=== PATIENT | female | born 1970 | race Caucasian/White ===

== ENCOUNTER → 2018-03-06 12:30 | Outpatient (CLI) | payer OTHER, SELFPAY ==
--- NOTE | 2018-03-06 12:35 | ECHOD_ITS ---
Reason For Study: PHTN Procedure This was a 2D Doppler, Color Flow transthoracic echocardiogram. Exam performed in department. Left Ventricle Normal LV size. Left ventricular systolic function is normal. The estimated ejection fraction is 60 %. Normal diastology for age. No regional wall motion abnormalities noted. Right Ventricle Normal RV size. Normal systolic function. Atria Normal left atrium. Normal right atrium. Mitral Valve Normal mitral valve. Tricuspid Valve Normal tricuspid valve. Mild (1+) tricuspid valve insufficiency. Pulmonary artery systolic pressure is 27 mmHg. Aortic Valve Normal aortic valve. Trisinus/trileaflet aortic valve. Pulmonic Valve Normal pulmonic valve. Great Vessels Normal aortic root. The pulmonary artery is normal size. Inferior vena cava collapse with sniff. Pericardium/Pleural No pericardial effusion. MMode/2D Measurements & Calculations LVIDd: 4.1 cm IVSd: 1.1 cm Ao root diam: 3.2 cm LVIDs: 2.8 cm LVPWd: 0.92 cm RVDd: 3.7 cm FS: 31.9 % LAV(MOD-bp): 43.3 ml LVAd ap4: 33.5 cm2 SV(MOD-sp4): 70.3 ml LAV(MOD-bp) Indexed: 26.0 ml/m2 EDV(MOD-sp4): 104.7 ml LAV(MOD-sp2): 56.1 ml EDV(sp4-el): 108.5 ml LAV(MOD-sp4): 32.1 ml LVAs ap4: 17.2 cm2 ESV(MOD-sp4): 34.4 ml ESV(sp4-el): 34.6 ml EF(MOD-sp4): 67.1 % EF(sp4-el): 68.1 % SV(sp4-el): 73.8 ml LA A4 area: 14.3 cm2 LA dimension(2D): 4.3 cm RA A4 area: 14.0 cm2 Doppler Measurements & Calculations MV E max layo: 113.3 cm/sec Lat Peak E' Layo: 10.5 cm/sec Med Peak E' Layo: 8.6 cm/sec MV A max layo: 105.3 cm/sec E/E' lat: 10.8 E/E' med: 13.1 MV E/A: 1.1 Ao V2 max: 122.8 cm/sec LV V1 max: 101.1 cm/sec PA V2 max: 88.4 cm/sec Ao max P.0 mmHg LV V1 max P.1 mmHg Ao V2 mean: 82.3 cm/sec Ao mean P.0 mmHg Ao V2 VTI: 29.9 cm TR max layo: 234.8 cm/sec TR max P.0 mmHg Interpretation Summary Normal LV size. Left ventricular systolic function is normal. The estimated ejection fraction is 60 %. Mild (1+) tricuspid valve insufficiency. Normal diastology for age. Structurally normal valves. Ordering Physician: Soledad Reis Referring Physician: Stefania Oliveira Performed By: Indiana Hartmann, HANNY, RVT
== END ==
PROVIDERS: Family Provider Family Medicine; PCP Family Medicine; Referring Provider Internal Medicine Rheumatology; Visit Provider Internal Medicine Rheumatology
DX: M34.1 CR(E)ST syndrome (principal); M06.4 Inflammatory polyarthropathy; K22.4 Dyskinesia of esophagus; K21.9 Gastro-esophageal reflux disease without esophagitis; I10 Essential (primary) hypertension; J30.89 Other allergic rhinitis
CPT/HCPCS: 93306

== ENCOUNTER → 2019-03-05 06:54 | Outpatient (CLI) | payer OTHER, SELFPAY ==
--- NOTE | 2019-03-05 07:57 | ECHOD_ITS ---
Reason For Study: PHTN Procedure This was a 2D Doppler, Color Flow transthoracic echocardiogram. Exam performed in department. Left Ventricle Normal LV size. Left ventricular systolic function is normal. The estimated ejection fraction is 65 %. Normal diastology for age. No regional wall motion abnormalities noted. Right Ventricle Normal RV size. Normal systolic function. Atria Normal left atrium. Normal right atrium. Mitral Valve Normal mitral valve. Tricuspid Valve Normal tricuspid valve. Aortic Valve Normal aortic valve. Trisinus/trileaflet aortic valve. Pulmonic Valve Normal pulmonic valve. Great Vessels Normal aortic root. The pulmonary artery is normal size. Normal inferior vena cava. Pericardium/Pleural No pericardial effusion. MMode/2D Measurements & Calculations LVIDd: 4.2 cm IVSd: 1.1 cm Ao root diam: 3.6 cm LVIDs: 2.7 cm LVPWd: 0.87 cm LA dimension: 3.4 cm RVDd: 3.3 cm FS: 35.0 % LAV(MOD-bp): 47.7 ml LA A4 area: 17.1 cm2 RA A4 area: 13.2 cm2 LAV(MOD-bp) Indexed: 27.9 ml/m2 LAV(MOD-sp2): 48.0 ml LAV(MOD-sp4): 40.3 ml Time Measurements MV dec time: 0.22 sec Doppler Measurements & Calculations MV E max layo: 94.9 cm/sec Lat Peak E' Layo: 9.2 cm/sec Med Peak E' Layo: 9.4 cm/sec MV A max layo: 104.1 cm/sec E/E' lat: 10.4 E/E' med: 10.1 MV E/A: 0.91 MV V2 max: 122.3 cm/sec MV P1/2t max layo: 105.9 cm/sec Ao V2 max: 113.6 cm/sec MV max P.0 mmHg MV P1/2t: 97.8 msec Ao max P.2 mmHg MV V2 mean: 72.7 cm/sec MV dec slope: 317.4 cm/sec2 MV mean P.5 mmHg MVA(P1/2t): 2.3 cm2 MV V2 VTI: 35.3 cm LV V1 max: 83.9 cm/sec PA V2 max: 113.6 cm/sec LV V1 max P.8 mmHg Interpretation Summary Normal LV size. Left ventricular systolic function is normal. The estimated ejection fraction is 65 %. Normal diastology for age. Structurally normal valves. Ordering Physician: Soledad Reis Referring Physician: Soledad Reis Performed By: Miki Infante RCS
--- NOTE | 2019-03-05 12:20 | PFTCOMP ---
COMPLETE PULMONARY FUNCTION TEST INTERPRETATION Brief HPI: Patient is a 48 year old female, currently under the care of Dr. Reis, who presents to [facility] for complete pulmonary function tests secondary to diagnosis of dyspnea. Respiratory therapist reports good effort and reproducible results. Interpretation: Forced expiration spirometry shows a mild large airways obstructive ventilatory defect with an FEV1 of 96% predicted. There is a significant bronchodilator response in FEV1 by strict ATS criteria. Spirograms are of good quality and plateau slowly, indicating slowly emptying areas of the lungs. The respiratory flow volume loop shows decreased expiratory flow rates at high lung volumes consistent with small airways obstruction. Lung volumes by body plethysmography show an elevated total lung capacity at 8.6 L, 159% predicted. FRC and RV are elevated out of proportion. Lung volume measurements are consistent with hyperinflation and air-trapping. Diffusion capacity by carbon monoxide is normal at 86% predicted. The airway resistance is slightly elevated. Compared to previous pulmonary function tests from 04/06/2013, significant improvements in FVC and FEV1 by 30% and 32% respectively. Impression: Fully reversible mild large airways obstructive ventilatory defect in a pattern consistent with asthma.
== END ==
PROVIDERS: Family Provider Family Medicine; PCP Family Medicine; Referring Provider Internal Medicine Rheumatology; Visit Provider Internal Medicine Rheumatology
DX: M34.1 CR(E)ST syndrome (principal); M06.4 Inflammatory polyarthropathy; K22.4 Dyskinesia of esophagus; K21.9 Gastro-esophageal reflux disease without esophagitis; I10 Essential (primary) hypertension; J30.89 Other allergic rhinitis
CPT/HCPCS: 93306; 94060; 94726; 94729

== ENCOUNTER → 2019-04-23 17:21 | Outpatient (CLI) | payer OTHER, SELFPAY ==
[2019-04-23 17:24] LABS: Pathologist Comment May follow
[2019-04-23 19:19] LABS: Synovial Fld Mononuclear WBC % 84.9 %; Synovial Fld Polynuclear WBC # 0.164 10^3/uL; Synovial Fld Polynuclear WBC % 15.1 %
[2019-04-23 20:55] LABS: AUTO B FLUID DILUENT BKGD CT WBC <0.1 RBC <0.01 (W<.1,R<.01); Source- Body Fluid SYNOVIAL
[2019-04-23 20:56] LABS: Appearance /Synovial Fluid Cloudy (CLEAR); Color / Synovial Fluid Yellow (Pale Yellow); RBC /Synovial Fluid 44 /mm3 (0)
[2019-04-23 20:57] LABS: Lymph 27 %; Monocyte /Synovial Fluid 3 %; Neutrophil 22 % (0-25); Other Cell /Synovial Fluid 48 %
[2019-04-23 21:05] LABS: Body Fluid QC Type(s) BF1Q,BF2Q
[2019-04-27 09:50] LABS: Pathologist Review Reviewed
== END ==
PROVIDERS: Family Provider Family Medicine; PCP Family Medicine; Referring Provider Internal Medicine Rheumatology; Visit Provider Internal Medicine Rheumatology
DX: M34.1 CR(E)ST syndrome (principal); M06.4 Inflammatory polyarthropathy; K22.4 Dyskinesia of esophagus; K21.9 Gastro-esophageal reflux disease without esophagitis; I10 Essential (primary) hypertension; J30.89 Other allergic rhinitis
CPT/HCPCS: 87070; 87075; 87205; 89050; 89051; 89060

== ENCOUNTER → 2020-09-29 08:33 | Outpatient (CLI) | payer OTHER, SELFPAY ==
[2020-04-27 14:10] VITALS: BMI 22.8
--- NOTE | 2020-09-29 08:36 | ECHOD_ITS ---
Reason For Study: ASSESS PHTN Procedure This was a 2D Doppler, Color Flow transthoracic echocardiogram. The exam was of adequate technical quality. Exam performed in department. Left Ventricle Normal LV size. Left ventricular systolic function is normal. The estimated ejection fraction is 65 %. No evidence for diastolic dysfunction. No regional wall motion abnormalities noted. Right Ventricle Normal RV size. Normal systolic function. Atria Normal left atrium. Normal right atrium. No doppler evidence for ASD. Mitral Valve There is no mitral annular calcification. The mitral valve is structurally normal. No prolapse or stenosis seen. Trivial mitral valve insufficiency. Tricuspid Valve Normal tricuspid valve. Trivial tricuspid valve insufficiency. Right ventricular systolic pressure estimated to be 26 mmHg. Aortic Valve Trisinus/trileaflet aortic valve. Normal aortic valve. Pulmonic Valve The pulmonic valve is not well visualized. Trivial eccentric pulmonic valve insufficiency. Great Vessels Normal sized aortic root. Pericardium/Pleural No pericardial effusion. MMode/2D Measurements & Calculations LVIDd: 4.1 cm IVSd: 0.95 cm Ao root diam: 3.4 cm LVIDs: 3.1 cm LVPWd: 1.1 cm RVDd: 3.8 cm FS: 25.1 % LAV(MOD-bp): 43.4 ml LA A4 area: 13.9 cm2 LA dimension(2D): 3.0 cm LAV(MOD-bp) Indexed: 26.0 ml/m2 LAV(MOD-sp2): 40.6 ml LAV(MOD-sp4): 37.5 ml RA A4 area: 14.4 cm2 Time Measurements MV dec time: 0.20 sec Doppler Measurements & Calculations MV E max layo: 85.5 cm/sec Lat Peak E' Layo: 7.6 cm/sec Med Peak E' Layo: 8.7 cm/sec MV A max layo: 92.8 cm/sec E/E' lat: 11.2 E/E' med: 9.8 MV E/A: 0.92 Ao V2 max: 94.3 cm/sec LV V1 max: 86.7 cm/sec PA V2 max: 87.5 cm/sec Ao max P.6 mmHg LV V1 max P.0 mmHg TR max layo: 239.0 cm/sec TR max P.9 mmHg ECHO/Echo Complete Interpretation Summary Left ventricular systolic function is normal. The estimated ejection fraction is 65 %. Trivial mitral valve insufficiency. Trivial tricuspid valve insufficiency. Trivial eccentric pulmonic valve insufficiency. Right ventricular systolic pressure estimated to be 26 mmHg. No evidence for diastolic dysfunction. Ordering Physician: Soledad Reis Referring Physician: Peyman Goins Performed By: Vanessa Lomax RDCS, RVT
--- NOTE | 2020-09-29 09:30 | RAD_ITS ---
STUDY: X-RAY - THORACIC SPINE REASON FOR EXAM: Female, 50 years old. UPPER R BACK PAIN,CHRONIC,HX BACK SURGERY TECHNIQUE: 5 view(s) of the thoracic spine were obtained. COMPARISON: None. FINDINGS: There is an increase in the normal thoracic kyphosis. There is no substantial scoliosis. There is demineralization of the thoracic spine with endplate spondylosis. There is multilevel disc space narrowing of the thoracic spine. The soft tissue structures are unremarkable. RAD/Thoracic Spine Min 4 Views IMPRESSION: Increased kyphosis. Multilevel spondylosis and disc space narrowing. Electronically Signed: Felipe Haines MD at 12:41 EDT , Service support ,
== END ==
PROVIDERS: PCP Student in an Organized Health Care Education/Training Program; Referring Provider Internal Medicine Rheumatology; Visit Provider Internal Medicine Rheumatology
DX: M34.1 CR(E)ST syndrome (principal); M06.4 Inflammatory polyarthropathy; K22.4 Dyskinesia of esophagus; K21.9 Gastro-esophageal reflux disease without esophagitis; I10 Essential (primary) hypertension; J30.89 Other allergic rhinitis
CPT/HCPCS: 72074; 93306

== ENCOUNTER 2021-07-09 09:36 | Emergency (ER) | payer OTHER, SELFPAY ==
[2021-07-09 09:37] VITALS: BP 144/90; PULSE 89; RESP 14; TEMP 36.7; BMI 21.3
--- NOTE | 2021-07-09 09:47 | ED.VIS.GI ---
HPI HPI - GI History of Present Illness Chief Complaint: Abd Pain Informant: patient Abdominal Pain/Flank Pain Onset: Weeks Context: Gradual Onset Timing: Continuous Quality: Aching Location: LLQ Current Severity: Mild Maximum Severity: Moderate Worsened by: Nothing Relieved by: Nothing Nausea/Vomiting/Emesis GI Symptom: Negative for Nausea and Vomiting Diarrhea/Melena/Hematochezia GI Symptom: Negative for Diarrhea, Melena and Hematochezia Associated Symptoms Associated Symptoms: Positive for Frequency; Negative for Dysuria, Hematuria and Urgency Narrative Narrative: 51-year-old femaleWith chronic kidney disease, crest syndrome and a prior hysterectomy. Stay it since around 8 she has had left lower quadrant abdominal pain. She previously presented to [place] emergency department. At that time she was also having atypical chest discomfort. They worked her up from a cardiac standpoint according to her. She saw her primary care physician who started her on Cipro and Flagyl at that time they chose not to get a CAT scan. States initially she thought she was getting better but the pain has returned and she finished 10 days of Cipro and Flagyl. States she is peeing frequently but denies any dysuria. No melena. No fever. Prior similar symptoms: No Recent Illness/Hospitalization: No PFSH PFSH Medical History (Updated 07/09/21 @ 12:[address] Schuyler Lezama MD) Chest pain CKD (chronic kidney disease) stage 3, GFR 30-59 ml/min CREST (calcinosis, Raynaud's phenomenon, esophageal dysfunction, sclerodactyly, telangiectasia) Essential hypertension GERD (gastroesophageal reflux disease) Home Medications fluoxetine 20 mg capsule 20 mg PO DAILY 04/24/20 [History Last Taken Unknown] fluticasone propionate 50 mcg/actuation nasal spray,suspension 1 spray INTRANASAL DAILY 04/24/20 [History Last Taken Unknown] hydroxychloroquine 200 mg tablet 300 mg PO DAILY 04/24/20 [History Last Taken Unknown] losartan 50 mg tablet 50 mg PO DAILY 04/24/20 [History Last Taken Unknown] multivitamin 1 tab PO DAILY 04/24/20 [History Last Taken Unknown] pantoprazole 40 mg tablet,delayed release 40 mg PO DAILY tab 04/24/20 [History Last Taken Unknown] trazodone 50 mg tablet 50 mg PO DAILY 04/24/20 [History Last Taken Unknown] albuterol sulfate 90 mcg/actuation aerosol inhaler 1 inh INHALATION ONCE PRN 04/27/20 [History Last Taken Unknown] tramadol 50 mg tablet 50 mg PO DAILY 04/27/20 [History Last Taken Unknown] amlodipine 5 mg PO DAILY 07/09/21 [History Last Taken Unknown] Allergy/AdvReac Type Severity Reaction Status Date / Time Penicillins Allergy Intermediate Rash Verified 07/09/21 09:36 Family History Mother Diabetes Heart disease Hypertension Surgical History History of back surgery History of hysterectomy Social History Smoking Status: Former smoker alcohol intake: never substance use type: does not use caffeine: Yes Type: carbonated beverages Number of servings: 3 and coffee Number of servings: 2 ROS ROS ED ROS Narrative Abdominal pain. Urinary frequency. Review of Systems ROS Unobtainable: Denies due to encephalopathy Constitutional Constitutional ED: Reports chills; Denies fever(s) ENT ENT ED: Denies ear pain Cardiovascular Cardiovascular: Denies chest pain Respiratory/Chest Respiratory/Chest: Denies cough or dyspnea Gastrointestinal Gastrointestinal: Reports abdominal pain and constipation; Denies diarrhea, nausea or vomiting Genitourinary Genitourinary ED: Reports urinary frequency; Denies dysuria or hematuria Musculoskeletal Musculoskeletal: Denies myalgias Integumentary Denies rash Neurologic Neurologic: Denies headache(s) Psychiatric Psychiatric: Denies depression Endocrine Endocrinology: Denies polyuria Hematologic/Lymphatic Hematologic/Lymphatic: Denies easy bruising Allergic/Immunologic Allergic/Immunologic ED: Denies urticaria EXAM Physical Exam Narrative Exam Narrative: 51-year-old female no acute distress. Vital signs stable afebrile. HEENT, neck heart lung exams unremarkable. Abdomen soft. Nondistended. Normal bowel sounds no peritoneal signs. Tender in the left lower quadrant. Otherwise unremarkable. No hernia or mass. No distention. No obstruction. No pulsatile mass. Moving all 4 extremities. Awake and alert. Const Vital Signs: 07/09/21 09:37 Temperature 98.1 F Temperature Source Temporal Pulse Rate 89 Respiratory Rate 14 Blood Pressure 144/90 H Blood Pressure Mean 108 Positive well nourished and well developed; Negative for obese, cachectic, contractures or unkempt General Appearance ED: well developed and NAD; Negative for unkempt, cachectic, contractures or pallor Nutritional Appearance: Negative for cachectic or obese HEENT Reports moist mucous membranes normocephalic and atraumatic Eyes PERRL and EOMs intact bilaterally Neck no lymphadenopathy, supple and no JVD General: Negative for tenderness Resp normal respiratory effort and clear to auscultation bilaterally Auscultation: Negative for rales, rhonchi or wheezes Cardio regular rate, regular rhythm, S1 normal heart sound, S2 normal heart sound and no murmurs GI non-distended and no masses; Negative for non-tender Auscultation: normoactive bowel sounds Palpation: soft; Negative for tender, guarding or rigid Back/Spine no CVA tenderness General Back: Negative for CVA tenderness Cervical Spine: Negative for cervical spine tenderness Thoracic Spine / Upper Back: Negative for thoracic spinal tenderness Extremity full ROM General Extremety ED: Negative for edema or tenderness General Extremity: Negative for edema Neuro moves all extremities Sensorium / Orientation: alert, oriented to person, oriented to place and oriented to time; Negative for orientation impaired, confused, lethargic or stuporous Motor Exam: strength 5/5 throughout Psych mental status grossly normal and thought process normal Appearance: Negative for unkempt Skin no wounds General Skin Exam: Negative for jaundice or pallor Lesions: no lesions Rashes: no rashes and No rashes noted MDM MDM MDM Narrative Medical decision making narrative: 51-year-old female with several week history of left lower quadrant abdominal pain. Did finish a 10-day course of Cipro and Flagyl. Pain returns. Diverticulitis is high on the differential. CAT scan andlabs are being obtained. She was offered but did not anything for pain or nausea. Repeat exam patient doing well at 12:35 PM. She will be discharged home with a bottle of magnesium citrate for constipation. Lab Data Attestation: I reviewed the patient's lab results. Lab results narrative: CBC shows a white count of 5. H&H 14 and 44. Chemistries unremarkable gap of 8 normal BUN of 11 creatinine 1.1. Liver enzymes are unremarkable. Lipase normal at 281. Urinalysis normal. CAT scan consistent with constipation. No diverticulitis. Labs: Laboratory Results - last 24 hr 07/09/21 07/09/21 07/09/21 09:56 09:56 09:56 WBC 5.5 RBC 4.57 Hgb 14.3 Hct 44.1 MCV 96.5 MCH 31.3 MCHC 32.4 RDW Std Deviation 46.3 H RDW Coeff of Jessica 12.9 Plt Count 383 MPV 8.3 Immature Gran % (Auto) 0.400 Neut % (Auto) 71.0 H Lymph % (Auto) 12.9 L [place] % (Auto) 7.7 Eos % (Auto) 7.1 H Baso % (Auto) 0.9 Absolute Neuts (auto) 3.9 Absolute Lymphs (auto) 0.71 L Nucleated RBC % 0 Sodium 138 Potassium 3.7 Chloride 102 Carbon Dioxide 28.0 Anion Gap 8 BUN 11 Creatinine 1.15 H Estim Creat Clear Calc 55.40 Est GFR (MDRD) Af Amer 64 Est GFR (MDRD) Non-Af 53 L BUN/Creatinine Ratio 9.6 L Glucose 124 H Calcium 9.2 Total Bilirubin 0.40 AST 24 ALT 23 Alkaline Phosphatase 49 Total Protein 7.7 Albumin 4.1 Globulin 3.6 Albumin/Globulin Ratio 1.1 Lipase 281 Urine Color Straw Urine Clarity Clear Urine pH 7.0 Ur Specific [place] 1.005 Urine Protein Negative Urine Glucose (UA) Normal Urine Ketones Negative Urine Occult Blood Negative Urine Nitrite Negative Urine Bilirubin Negative Urine Urobilinogen Normal Ur Leukocyte Esterase Negative Urine RBC 0 SEEN Urine WBC 0 SEEN Ur Squamous Epith Cells 0-5 SEEN Urine Bacteria 0 SEEN Urine Mucus 0 SEEN Radiography Diagnostic Testing: Clinical Impression(s) from Imaging Studies Abdomen/Pelvis CT 07/09/21 10:31 IMPRESSION: Sigmoid diverticulosis. Large amount of fecal material is seen in the colon. Electronically Signed: Felipe Haines MD at 10:57 EDT , Discharge Plan Triage Chief Complaint: Abd Pain ED Provider: Schuyler Lezama Dx/Rx/DC Orders Clinical Impression: Abdominal pain, CKD (chronic kidney disease) stage 3, GFR 30-59 ml/min, Constipation Instructions: ED Constipation (Adult) Prescriptions: No Action albuterol sulfate [Ventolin HFA] 90 mcg/actuation HFA aerosol inhaler 1 inh INHALATION ONCE PRN (Reason: wheezing) RF: 0 tramadol 50 mg tablet 50 mg PO DAILY RF: 0 trazodone 50 mg tablet 50 mg PO DAILY RF: 0 fluticasone propionate [Flonase Allergy Relief] 50 mcg/actuation spray,suspension 1 spray INTRANASAL DAILY RF: 0 pantoprazole 40 mg tablet,delayed release (DR/EC) 40 mg PO DAILY RF: 0 multivitamin Tablet 1 tab PO DAILY RF: 0 fluoxetine [Prozac] 20 mg capsule 20 mg PO DAILY RF: 0 losartan 50 mg tablet 50 mg PO DAILY RF: 0 hydroxychloroquine [Plaquenil] 200 mg tablet 300 mg PO DAILY RF: 0 amlodipine 5 mg tablet 5 mg PO DAILY RF: 0 Primary Care Provider: Peyman Goins Referrals: Peyman Goins DO [Primary Care Provider] - 3-5 Days if not improving Activity Restrictions/Additional Instructions: Your labs and urinalysis were normal. CAT scan showed diverticulosis but no acute infection of diverticulitis. Your CAT scan showed a lot of stool consistent with constipation. Plenty of fluids, fiber, fruits and vegetables and magnesium citrate. Drink the whole bottle when you get home. Usually people have a bowel movement within 2 to 4 hours. Disposition Disposition: Home, Self Care
[2021-07-09] MEDS: 0.9% Normal Saline 1,000 ML 1000 ML IV (09:55)
[2021-07-09 10:01] LABS: Bacteria 0 SEEN /hpf (None Seen); Mucous, Urine 0 SEEN /hpf (<or=2+); Red Blood Cells-Urine 0 SEEN /hpf (0-5); White Blood Cells 0 SEEN /hpf (0-5)
[2021-07-09 10:05] LABS: Absolute Lymphocyte Count 0.71 X10^3/uL (0.83-4.51); Absolute Neutrophil Count 3.9 X10^3/uL (2.0-7.7); Basophil# 0.05 X10^3/uL; Basophil% 0.9 % (0-1); Eosinophil# 0.39 X10^3/uL; Eosinophils% 7.1 % (0-5); Hematocrit 44.1 % (37-47); Hemoglobin 14.3 g/dL (12.0-15.0); Lymphocyte # 0.71 X10^3/ul (0.83-4.51); Lymphocyte % 12.9 % (19-41); Mean Corp Hgb Conc 32.4 g/dL (32-36); Mean Corpuscular Hgb 31.3 pg (27.0-32.0); Mean Corpuscular Volume 96.5 fL (81-99); Mean Platelet Vol. 8.3 fl (6.2-12.0); Monocyte# 0.42 X10^3/uL; Monocyte% 7.7 % (0-10); NRBC Flagged by Analyzer 0 % (0-5); Platelet Count 383 K/mm3 (150-450); RBC Distribution Width CV 12.9 % (11.6-14.6); RBC Distribution Width SD 46.3 fl (35.1-43.9); Red Blood Count 4.57 M/mm3 (4.2-5.4); White Blood Count 5.5 K/mm3 (4.4-11.0)
[2021-07-09 10:20] LABS: ALB/GLOB Ratio 1.1 RATIO (0.9-2.4); AST(SGOT) 24 U/L (15-37); Alanine Aminotransfer ALT/SGPT 23 U/L (13-56); Albumin, Serum 4.1 g/dL (3.2-5.0); Alkaline Phosphatase 49 U/L (45-117); Anion Gap 8 (5-15); BUN 11 mg/dL (7-18); BUN/Creat Ratio 9.6 RATIO (10-20); Calcium,Total 9.2 mg/dL (8.5-10.1); Chloride 102 mmol/L (98-107); Creatinine, Serum 1.15 mg/dL (0.55-1.02); EST Glomerular Filtration Rate 53 mL/min (>60); Est Glom Filt Rate - Afr Amer 64 mL/min (>60); Globulin 3.6 g/dL (2.2-4.2); Glucose 124 mg/dL (74-106); Lipase 281 U/L (73-393); Potassium 3.7 mmol/L (3.5-5.1); Protein, Total 7.7 g/dL (6.4-8.2); Sodium Level 138 mmol/L (136-145)
--- NOTE | 2021-07-09 10:31 | CT_ITS ---
STUDY: CT ABDOMEN AND PELVIS WITH CONTRAST REASON FOR EXAM: Female, 51 years old. LLQ abd pain RADIATION DOSAGE (If Supplied By Facility): CTDIvol = ( 8.69 ) mGy, DLP = ( 365.66 ) mGycm TECHNIQUE: Transaxial images were obtained from the dome of the diaphragm to the symphysis pubis without oral contrast. IV 100mL Isovue-300 was administered. Sagittal and coronal images were reconstructed. Individualized dose optimization techniques were used for this CT. COMPARISON: None. FINDINGS: The visualized lung bases are unremarkable. The visualized portions of the heart are within normal limits. Normal liver. Normal gallbladder and extrahepatic biliary system. Normal spleen. Normal pancreas. Normal bilateral adrenal glands. Normal right kidney. Normal left kidney. There is a small hiatal hernia. Normal small intestine. There are multiple colonic diverticula consistent with diverticulosis. Large amount of fecal material is seen in the colon. The appendix is visualized and appears normal. Normal abdominal aorta. Normal inferior vena cava. Normal retroperitoneum. Normal urinary bladder. Normal abdominal wall. Mild degree of disc space narrowing the L4-L5 level. CT/Abdomen/Pelvis W IV Cont ONLY IMPRESSION: Sigmoid diverticulosis. Large amount of fecal material is seen in the colon. Electronically Signed: Felipe Haines MD at 10:57 EDT ,
[2021-07-09 11:31] LABS: Glucose, Dipstick Normal (Normal); Ketone-Dipstick Negative (Negative); Leukocyte Esterase-Dipstick Negative /ul (Negative); Nitrite-Dipstick Negative (Negative); Occult Blood-Urine Negative /ul (Negative); Protein-Dipstick Negative (Negative); Specific Gravity, Urine 1.005 (1.002-1.030); Urine Bilirubin Dipstick Negative (Negative); Urine Urobilinogen Normal (Normal)
[2021-07-09 11:32] LABS: Color, Urine Straw (Yellow); Urine Clarity Clear (Clear)
[2021-07-09 11:34] LABS: Squamous Epithelial Cells - UA 0-5 SEEN /hpf (5-10)
[2021-07-09] MEDS: Magnesium Citrate 300 ML 150 ML PO (12:58)
[2021-07-09 13:01] VITALS: BP 134/87; PULSE 85; RESP 16; O2SAT 97
== END 2021-07-09 13:02 | disposition home or self-care (01) ==
PROVIDERS: Emergency Provider Emergency Medicine; PCP Student in an Organized Health Care Education/Training Program; Visit Provider Emergency Medicine
DX: R10.9 Unspecified abdominal pain (principal); M34.1 CR(E)ST syndrome; N18.30 Chronic kidney disease, stage 3 unspecified; K59.00 Constipation, unspecified; I12.9 Hypertensive chronic kidney disease with stage 1 through stage 4 chronic kidney disease, or unspecified chronic kidney disease; Z87.891 Personal history of nicotine dependence; Z79.899 Other long term (current) drug therapy; Z79.51 Long term (current) use of inhaled steroids
CPT/HCPCS: 74177; 80053; 81001; 83690; 85025; 96360; 99284; J7030; Q9967